=== PATIENT | male | born 1940 | race Caucasian/White ===

== ENCOUNTER 2019-06-18 00:15 | Day surgery (SDC) | payer MEDICARE, SELFPAY ==
[2019-05-31 12:23] VITALS: BP 161/74; PULSE 58; RESP 18; TEMP 36.9; O2SAT 99; BMI 27.9
[2019-05-31 12:58] VITALS: BP 161/74; PULSE 58; RESP 18; TEMP 36.9; O2SAT 99
--- NOTE | 2019-06-17 15:27 | WPDANESEPP ---
Anes - Eval Pre Procedure Procedure: Operation Date: 06/18/19 07:30 Proposed Procedures p Left Total Knee Arthroplasty(Left) - Daljit Cooper MD Date/Time: 06/17/19 15:27 Surgeon: Daljit Cooper MD Pre Op Diagnosis: Left Knee OA Patient Data Age: 79 Gender: M Height: 5 ft 9 in Weight: 85.9 kg Last Vital Signs Temp 98.4 F 05/31/19 12:58 Pulse 58 L 05/31/19 12:58 Resp 18 05/31/19 12:58 BP 161/74 H 05/31/19 12:58 Pulse Ox 99 05/31/19 12:58 Allergies Allergy/AdvReac Type Severity Reaction Status Date / Time No Known Allergies Allergy Verified 06/04/19 09:23 Home Medications Medication Instructions Recorded Confirmed Type acetaminophen [Tylenol Extra 500 mg PO Q4H PRN 05/31/19 06/04/19 History Strength] aspirin [Adult Low Dose Aspirin] 81 mg PO DAILY 05/31/19 06/04/19 History finasteride 5 mg PO DAILY 05/31/19 06/04/19 History flaxseed oil 1,000 mg PO DAILY 05/31/19 06/04/19 History glucos sul [id number] 1 cap PO DAILY 05/31/19 06/04/19 History [Glucosamine Chondroitin] levothyroxine 125 mcg PO DAILY 05/31/19 06/04/19 History meloxicam 15 mg PO DAILY 05/31/19 06/04/19 History tamsulosin 0.4 mg PO BID 05/31/19 06/04/19 History 05/31/19: Hgb 16.0 Plt 152 Na 138 K+4.2 Cr 0.9 GFR >60 Glu 81 Other Studies: pt reports good exercise tolerance, [employer] 2-3 times/wk. stationary bike. METS > [address] Arredondo. Medical clearance on chart noted. 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
--- NOTE | 2019-06-17 15:43 | HP_ITS ---
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 We are planning outpatient with overnight stay. He went home the day after his right knee replacement we had done in August. PAST MEDICAL HISTORY: Significant for BPH, low thyroid, arthritis, right hip replacement in 2011, right knee replacement in August 2018, colon resection in 2007, colon re-resection in 2014 with prolonged hospitalization due to ileus afterwards, rotator cuff repair on the right in 2000, on the left in 2002, herniorrhaphy in 1993. MEDICATIONS: 1. Meloxicam 15 mg per day. 2. Levothyroxine. 3. Finasteride. 4. Tamsulosin. ALLERGIES: NO KNOWN DRUG ALLERGIES. FAMILY HISTORY: Father had Parkinson's. Mother had high blood pressure. SOCIAL HISTORY: He quit smoking 40 years ago. REVIEW OF SYSTEMS: Negative. PHYSICAL EXAMINATION: Today, he is a pleasant gentleman, in no acute distress. He is alert and oriented. He has varus alignment to his left knee. Range of motion is from 6 to 125. No pain with range of motion of his left hip. He has normal stability in the left knee. Normal quadriceps strength. Normal sensation in the left foot. No lower extremity edema. Skin looks healthy in left lower extremity. 2+ dorsalis pedis and posterior tibial artery pulses were palpable. Gait with very slight limp relative to left knee. Heart and lung auscultation will be documented on day of admission. IMAGING DATA: X-rays of the left knee show advanced medial compartment osteoarthritis [id number] with wear and sclerosis on both sides of the medial compartment. Mild medial subluxation noted. Early degenerative change noted in the lateral compartment as well. Risks of surgery were discussed with him in detail. He understands and wishes to proceed with left total knee arthroplasty. With his other knee, we used Lovenox for 2 weeks followed by regular strength aspirin twice daily for 1 month for DVT prophylaxis as well as Celebrex postoperatively. We may use the baby aspirin twice daily regimen now, which has been shown to be equally effective. We will plan with the Celebrex as well. Last cortisone shot in left knee was October 2018, which did not help despite also taking meloxicam 15 mg daily. He has failed nonoperative treatment and presents for surgery as discussed. D I MT: Maria C
[2019-06-18] VITALS (11 sets, daily range): BP systolic 128–167; BP diastolic 51–74; PULSE 49–81; RESP 12–20; TEMP 27.7–36.8; O2SAT 93–100; BMI 26.6
--- NOTE | ~2019-06-18 | XR_ITS ---
EXAMINATION: XR knee LT 2V DATE: 06/18/2019 11:27 INDICATION: Postoperative evaluation following left total knee arthroplasty. TECHNIQUE: Anteroposterior and lateral views of the left knee were obtained. COMPARISON: None. FINDINGS: Left total knee arthroplasty with patellar resurfacing appears well seated and in near anatomic align ment. No fractures identified. Expected postoperative subcutaneous and intra-articular gas. IMPRESSION: 1. Left total knee arthroplasty, negative for postoperative purposes. Reviewed, dictated and finalized at location A. MEDICAL ASSISTANT
[2019-06-18] MEDS: IBUPROFEN IV 800 MG/200 ML 800 MG/200 ML BAG 400 MG IVPB (06:50)
[2019-06-18] MEDS: LACTATED RINGERS 1,000 ML 30 ML IV CONT ×3 (06:50→12:22)
--- NOTE | 2019-06-18 06:50 | WPDANESEFPP ---
Anes - Eval Final PreProcedure Day of Procedure 06/18/19 06:50 Patient weight: overweight Heart: regular rate and rhythm Lungs: clear to auscultation Airway: Mallampati scale class II Neurological: alert and oriented Last oral intake: >/= 8 hours ASA classification: II Emergent: no Anesthetic plan: proceed Anesthesia type and monitoring: general ETT and standard monitoring Informed Consent: The patient's anesthetic plan of GA with ETT for Left TKA with Dr. Cooper and its attendant risks and benefits were discussed with the patient/family/POA. Questions were solicited and answers provided to the satisfaction of the patient/family/POA.
--- NOTE | 2019-06-18 07:16 | WPDHPUPDATE1 ---
History and Physical Update Update Date/Time: 06/18/19 07:16 History and Physical has been reviewed, including an updated exam of the patient. There are NO changes in the patient's condition. Risks, benefits, and alternatives have been discussed and questions answered. Patient agrees to proceed with procedure.
[2019-06-18] MEDS: ceFAZolin 2 GM/D5W 50 ML 2 GM/50 ML BAG IVPB (07:26)
[2019-06-18] MEDS: GENTAMICIN BONE CEMENT REFOBACIN 1 EACH TOPICAL (08:06)
[2019-06-18] MEDS: ceFAZolin SODIUM 1 GM VIAL IV PUSH (10:13)
--- NOTE | 2019-06-18 11:06 | PM.PROC ---
Date of procedure: 06/18/19 Pre-op diagnosis: Left Knee OA Post-op diagnosis: same Procedure performed: Left total knee arthroplasty Description of procedure: Patient is brought to the operative room and general anesthesia was administered. he received 2 g of Ancef weight based vancomycin 1 g of tranexamic acid preoperatively and the left leg prepped draped in usual fashion. Her as she still had about a 5 or 6? flexion contracture do and passive flexion limited to 125 with for some gravity flexion to about 115. That was exsanguinated and tourniquet elevated to 250 mm of mercury. A 7 inch longitudinal incision was used and a standard parapatellar arthrotomy utilized. infrapatellar and suprapatellar fat pads were excised the quadriceps synovectomy carried out. The patella measured 24 mm in thickness and was cut to 15.5 mm. Protector cap applied. Bone quality was good. A guiderod was inserted our femoral canal for aspiration of the canal contents using the 5? valgus cutting bushing 10 mm of bone removed the distal femur. next the tibial plateau was cut. We and we set the cut to be a skim cut along the medial aspect of the medial tibial plateau and this was accomplished Caroline flash medially and medial edge. This removed more lateral plateau because of his varus deformity bone measured 12.5 mm thickness. meniscal remnants were excised PCL recessed. Medial tibial osteophyte was removed. Medial side was still a bit tighter than the lateral side in extension. He accepted the 10 mm spacer block in extension with gapping laterally. None except the 12. Flexion gap was assessed. Medially it measured 9 mm laterally 14 mm. The proper alignment of the tibial plateau cut was confirmed. Whitesides line as well as the transepicondylar axis were drawn on the distal femur and 5? of external rotation on the AP sizing guide was the proper rotation which matched both lines. Posterior sentinel placed and we cut 272.5 size we utilized on the other side. This side to 72.5 was a little bit too wide and 2 large knee in the anterior-posterior dimension. We cut down to size 70 which fit well. the tibia was sized to a 75 a 79 was going to be too wide at the proper rotation grade this was punched and proper rotation relative to medial 1/3 of the tibial tubercle Eliza anterior cortex of the tibial plateau cut and aligned with the foot. on trialing the 12 insert was a little loose in flexion tighter medially than laterally and in extension it was tighter medially than laterally with balance. Additional tibial plateau bone was removed medially and posterior medially with moderate medial posterior medial capsular release associated grade this time we trialed with the 13 insert. we were still too tight medially especially at 90? of flexion with no medial gapping with a 13 and a tightness medially with a little too much gap laterally. I felt I had done as much medial releases was performed with. I thought the best solution was to remove 1 mm of bone from the medial plateau to introduce for for S 1? of varus which is what we ended up doing for his other knee as well. with this done we trialed with a 14 insert and found that we had appropriate stability at 90? with 0.5 mm medial opening 2 mm lateral opening. However we lacked full extension at this point. I had prior to this step released posterior capsule medially and centrally and removed posterior femoral osteophytes. we therefore removed 1 more mm of bone from the distal femur. Tourniquet had been put down at this point is we were not going to come in and went underwent 120 min. A mm of distal femur history move to and chamfer cuts revised and we trialed again and this time the knee came out to full extension with a negative bounce 1 mm medial opening 3 mm lateral opening in extension and appropriate stability throughout flexion and gravity flexion to 130. The patella was sized to a 37 and lug holes drilled and the 37 thin 8.6 mm patella daphne
--- NOTE | 2019-06-18 12:53 | ADMGEN ---
This patient, Chuy Smart, was admitted to [facility] Surg Room 332-01. Patient/family oriented to hospital policies and general routines including ID bracelet, bed and alarms, visiting hours, pain management, procedures, bathroom and other care routines, personal items, smoking policy, room service/diet, and visiting hours. Valuables list has been completed. Information on how to activate the Rapid Response Team has been discussed. Patient/Family are encouraged to report perceived risks to care and to ask questions if they do not understand what they are told or what they should do.
[2019-06-18] MEDS: SODIUM CHLORIDE 0.9% IV 1,000 ML 125 ML IV CONT (13:20)
--- NOTE | 2019-06-18 14:04 | WPDCN ---
Assessment and Plan Assessment and plan (1) Osteoarthritis: Code(s): M19.90 - Unspecified osteoarthritis, unspecified site Status: Chronic Assessment and Plan: Postoperative day 0, status post left total knee arthroplasty. Pain control and wound care will be deferred to Dr. Cooper, as well as DVT prophylaxis. Will check baseline labs in a.m. (2) Hypothyroidism: Code(s): E03.9 - Hypothyroidism, unspecified Status: Chronic Assessment and Plan: Continue levothyroxine. (3) Benign prostatic hyperplasia without lower urinary tract symptoms: Code(s): N40.0 - Benign prostatic hyperplasia without lower urinary tract symptoms Status: Chronic Assessment and Plan: No acute issues. Will monitor for postoperative urinary retention. Continue tamsulosin. Additional Plan Thank you for allowing us to participate in this patient's care. Do not hesitate to contact us with any questions. We will follow with you. Supervising physician for this medical consultation is Dr. Enrrique Velazquez. HPI Data of Consult Date/Time: 06/18/19 14:04 Requesting Physician: Daljit Cooper MD Primary Care Provider: Jhonny Arredondo MD Consult Narrative Narrative: Chuy Smart is a 79 year old male status post left total knee arthroplasty performed today per Dr. Cooper. The hospitalist service has been consulted to aid in the management of his medical conditions. Chuy currently takes medication for hypothyroidism and benign prostatic hyperplasia, both which he states are adequately treated. 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 Other than that, he is quite healthy. His surgery today was performed under general anesthesia with no immediate complications documented an estimated blood loss of 250 mLs. Postoperatively he has minimal discomfort. He denies paresthesias, skin color, and temperature changes distal to the surgical site. He also denies postoperative fever, chills, sweats, chest pain, shortness of breath, nausea, and vomiting. The only complaint he has at the time my evaluation is of the room being too warm. Review of Systems Review of Systems: Narrative: Twelve systems were reviewed with pertinent positives and negatives as per HPI. No fever, chills, or sweats. He had some sinus symptoms several weeks ago but those have resolved. No exertional chest pain or shortness of breath. No history of venous thromboembolism. Except as documented, all other systems were reviewed and are negative. [facility] Past Medical History Medical History (Updated 06/18/19 @ 14:12 by Chantel Vidal PA-C) Benign prostatic hyperplasia without lower urinary tract symptoms (Chronic) Hyperlipidemia (Inactive) Hypothyroidism (Chronic) Osteoarthritis (Chronic) Overweight (BMI 25.0-29.9) (Chronic) Surgical History Surgical History (Updated 06/18/19 @ 14:13 by Chantel Vidal PA-C) History of colon resection (Inactive) In 2007 for large rectal tubulovillous adenoma. He had a recurrent mass which was subsequently resected in September 2014 with colostomy. History of inguinal herniorrhaphy (Inactive) Bilateral. History of knee replacement (Inactive) Right on September 13, 2018. History of rotator cuff surgery (Inactive) Bilateral. History of total hip replacement (Inactive) Right in 2011. Status post cataract extraction (Inactive) Status post tonsillectomy (Inactive) Family History Family History (Updated 06/18/19 @ 14:14 by Chantel Vidal PA-C) Mother Hyp
[2019-06-18 14:41] LABS: Estimated CRCL calculation 58 ml/min; Estimated Glomerular Filt Rate > 60
[2019-06-18] MEDS: ACETAMINOPHEN 500 MG TABLET 1000 MG PO ×2 (15:01→21:36)
[2019-06-18] MEDS: TAMSULOSIN HCL 0.4 MG CAPSULE PO (17:09)
[2019-06-18] MEDS: SENNA/DOCUSATE SODIUM TABLET 2 TAB PO (17:10)
[2019-06-18] MEDS: CELECOXIB 200 MG CAPSULE PO (17:12)
[2019-06-18] MEDS: FAMOTIDINE 20 MG TABLET PO (21:36)
[2019-06-19] VITALS: BP 135/62; PULSE 75; RESP 20; TEMP 37; O2SAT 97
[2019-06-19] MEDS: ACETAMINOPHEN 500 MG TABLET 1000 MG PO ×2 (01:59→08:00)
[2019-06-19 04:00] VITALS: BP 128/53; PULSE 53; RESP 20; TEMP 36.8; O2SAT 95
[2019-06-19] MEDS: LEVOTHYROXINE SODIUM 125 MCG TABLET PO (05:46)
[2019-06-19 06:04] LABS: Basophils Percent Auto 0.1 % (0.2-1.2); Eosinophils Percent Auto 0.2 % (0-4.4); Hematocrit 38.2 % (42.0-52.0); Immature Granulocyte Absolute 0.05 K/mm3 (0.00-0.031); Immature Granulocyte Percent A 0.5 % (0-0.5); Lymphocytes Absolute Auto 0.95 K/mm3 (0.9-3.2); Mean Corpuscular Hemoglobin 32.6 pg (26-34); Mean Corpuscular Volume 95.7 fl (80-100); Mean Platelet Volume 12.6 fl (7.4-10.4); Monocytes Absolute Auto 0.8 K/mm3 (0.1-0.6); Monocytes Percent Auto 7.9 % (2.6-8.5); Neutrophils Absolute Auto 7.7 K/mm3 (1.3-6.7); Neutrophils Percent Auto 81.3 % (45.5-73.1); Platelet Count Result 127 k/mm3 (150-375); Red Blood Count 3.99 M/mm3 (4.6-6.20); Red Cell Distribution Width 11.9 % (11.5-14.5); White Blood Count 9.5 K/mm3 (4.5-10.0)
--- NOTE | 2019-06-19 06:09 | PM.PNORT ---
Progress Note: A&P Additional Plan POD 1 alert pain is well controlled, wd-dry, was up to chair yesterday, labs-pending, overall doing well, will do PT sessions today then plan to send home later today Subjective Subjective Date/Time Seen: 06/19/19 06:09 Objective Data Vital Signs Vital Signs: Vital Signs - 24 hr 06/18/19 07:32 06/18/19 11:42 06/18/19 11:46 Temperature 27.7 C L 36.3 C L Pulse Rate 51 L 53 L 50 L Respiratory Rate 18 16 13 Blood Pressure 155/68 H 133/51 L 135/74 Pulse Oximetry 97 100 100 06/18/19 11:53 06/18/19 12:11 06/18/19 12:20 Temperature Pulse Rate 49 L 54 L 52 L Respiratory Rate 12 18 16 Blood Pressure 158/62 H 166/64 H 164/64 H Pulse Oximetry 100 95 100 06/18/19 12:25 06/18/19 12:40 06/18/19 13:10 Temperature 36.8 C 36.8 C Pulse Rate 53 L 51 L 54 L Respiratory Rate 16 16 16 Blood Pressure 151/66 H 167/62 H 159/58 H Pulse Oximetry 100 100 100 06/18/19 14:10 06/18/19 20:00 06/19/19 00:00 Temperature 36.4 C L 36.7 C 37.0 C Pulse Rate 81 55 L 75 Respiratory Rate 18 20 20 Blood Pressure 149/57 H 128/57 L 135/62 Pulse Oximetry 97 93 L 97 Intake/Output Intake/Output: Intake & Output 06/16/19 06/17/19 06/18/19 06/19/19 23:59 23:59 23:59 23:59 Intake Total 2785 725 Output Total 500 Balance 2285 725 Meds/Results Medications: Active Medications Generic Name Dose Route Start Last Admin Trade Name Freq PRN Reason Stop Dose Admin Acetaminophen 1,000 mg 06/18/19 14:00 06/19/19 01:59 Tylenol Tablet PO 1,000 mg Q6H NOLAN Administration Celecoxib 200 mg 06/18/19 17:00 06/18/19 17:12 Celebrex PO 200 mg BIDWM NOLAN Administration Diphenhydramine HCl 25 mg 06/18/19 12:33 Benadryl Inj IV PUSH Q6H PRN Itching Enoxaparin Sodium 30 mg 06/19/19 09:00 Lovenox SUB-Q Q12HR NOLAN Famotidine 20 mg 06/18/19 21:00 06/18/19 21:36 Pepcid PO 20 mg Q12HR NOLAN Administration Finasteride 5 mg 06/19/19 09:00 Proscar PO DAILY NOLAN Cefazolin Sodium 1 gm in 50 mls @ 100 mls/hr 06/18/19 15:30 06/18/19 23:53 Ancef 1 Gm/D5w 50 Ml Pm IVPB 06/19/19 15:31 100 mls/hr Q8H NOLAN Administration Vancomycin HCl 1,000 mg in 250 mls @ 250 mls/hr 06/18/19 19:00 06/18/19 18:02 Vancomycin 1,000 Mg/D5w 250 Ml IVPB 06/19/19 07:59 250 mls/hr Q12H NOLAN Administration Levothyroxine Sodium 125 mcg 06/19/19 06:30 06/19/19 05:46 Synthroid PO 125 mcg DAILY@0630 NOLAN Administration Morphine Sulfate 2 mg 06/18/19 12:33 Morphine Sulfate Inj IV PUSH Q2H PRN Breakthrough pain rated 4-6 Naloxone HCl 0.1 mg 06/18/19 12:33 Narcan IV PUSH Q2M PRN Opiate Reversal Ondansetron HCl 4 mg 06/18/19 12:33 Zofran Inj IV PUSH Q4H PRN Nausea And Vomiting Oxycodone HCl 5 mg 06/18/19 12:33 Roxicodone Ir PO Q4H PRN Pain Rated 4-6 Oxycodone HCl 5 mg 06/18/19 13:00 06/19/19 05:46 Roxicodone Ir PO 5 mg Q4HR NOLAN Administration Polyethylene Glycol 17 gm 06/19/19 09:00 Miralax PO QAM NOLAN Senna/Docusate Sodium 2 tab 06/18/19 17:00 06/18/19 17:10 Senokot S PO 2 tab BID NOLAN Administration Tamsulosin HCl 0.4 mg 06/18/19 17:00 06/18/19 17:09 Flomax PO 0.4 mg BID NOLAN Administration Radiology Results: ITS Impressions Knee X-Ray 06/18/19 11:29 IMPRESSION: 1. Left total knee arthroplasty, negative for postoperative purposes. Labs Labs: Laboratory Results - last 24 hr 06/18/19 06/18/19 06:50 14:25 Creatinine 0.90 Estim Creat Clear Calc 58 Estimated GFR > 60 Blood Type O Positive Antibody Screen Negative
[2019-06-19 06:13] LABS: Blood Urea Nitrogen 18 mg/dL (9-20); Calcium 8.2 mg/dL (8.4-10.2); Carbon Dioxide 28 mmol/L (22-30); Chloride 106 mmol/L (98-107); Estimated CRCL calculation 53 ml/min; Estimated Glomerular Filt Rate > 60; Glucose 109 mg/dL (75-110); Potassium 3.9 mmol/L (3.4-5.0); Sodium 140 mmol/L (137-145)
--- NOTE | 2019-06-19 06:27 | PM.DS ---
DS: Diagnosis Admitting Diagnosis Admitting Diagnosis: Left total knee DS: Summary Hospital Course Reason for hospitalization: Left total knee Hospital Course: Pt has been avss, alert , pain is well controoled, wd-dry with mepilex dressing, Pt to be discharged to home on 06-19, going home on regular diet. Pt advised to keep leg elevated at home to prevent swelling. Pt is on lovenox followed by babay aspirin BID for DVT proph., He is on celebrex 200mg BID and percocet for pain. He will have sennokat and miralax as well. He has outpt PT to start this tuesday, pt advised any questions or concerns to call office otherwise will be seen at scheduled appt Time Spent with Patient Time attestation: Total time spent providing and/or coordinating discharge services: DS: Data Data Completed and Pending Labs on day of discharge: Labs from last 24 hours 06/19/19 06/19/19 06/18/19 05:42 05:42 14:25 WBC 9.5 RBC 3.99 L Hgb 13.0 L D Hct 38.2 L MCV 95.7 MCH 32.6 MCHC 34.0 RDW 11.9 Plt Count 127 L MPV 12.6 H Immature Gran % (Auto) 0.5 Neut % (Auto) 81.3 H Lymph % (Auto) 10.0 L [place] % (Auto) 7.9 Eos % (Auto) 0.2 Baso % (Auto) 0.1 L Lymph # (Auto) 0.95 [place] # (Auto) 0.8 H Eos # (Auto) 0.0 Baso # (Auto) 0.0 Abs Immat Gran (auto) 0.05 H Absolute Neuts (auto) 7.7 H Absolute Nucleated RBC 0.0 Nucleated RBC % 0.0 Sodium 140 Potassium 3.9 Chloride 106 Carbon Dioxide 28 BUN 18 Creatinine 1.00 0.90 Estim Creat Clear Calc 53 58 Estimated GFR > 60 > 60 Glucose 109 Calcium 8.2 L Blood Type Antibody Screen 06/18/19 06:50 WBC RBC Hgb Hct MCV MCH MCHC RDW Plt Count MPV Immature Gran % (Auto) Neut % (Auto) Lymph % (Auto) [place] % (Auto) Eos % (Auto) Baso % (Auto) Lymph # (Auto) [place] # (Auto) Eos # (Auto) Baso # (Auto) Abs Immat Gran (auto) Absolute Neuts (auto) Absolute Nucleated RBC Nucleated RBC % Sodium Potassium Chloride Carbon Dioxide BUN Creatinine Estim Creat Clear Calc Estimated GFR Glucose Calcium Blood Type O Positive Antibody Screen Negative Discharge Plan Discharge Patient Disposition: Home, Self-Care Discharge Instructions: Pt to keep leg elevated at home to prevent swelling, do exercises 5 times a day, give pt additional dressing to change at home in 1 week, pt may shower with dressing intact Follow-up/Referrals: Daljit Cooper MD [Physician] - Keep Reg. Scheduled Appt. Discharge Medications: New celecoxib [Celebrex] 200 mg Capsule 200 mg PO BIDWM Qty: 60 RF: 0 polyethylene glycol 3350 [Miralax] 17 gram Powder In Packet 17 g PO QAM Qty: 30 RF: 0 sennosides-docusate sodium [Senokot-S] 8.6-50 mg Tablet 2 tab PO BID Qty: 60 RF: 0 enoxaparin 30 mg/0.3 mL Syringe 30 mg subcut Q12HR Qty: 27 RF: 0 oxycodone-acetaminophen [Percocet] 5-325 mg tablet 1 - 2 tablet PO Q4H PRN (Reason: pain) Qty: 60 RF: 0 Continued flaxseed oil 1,000 mg Capsule 1,000 mg PO DAILY RF: 0 tamsulosin 0.4 mg Capsule 0.4 mg PO BID RF: 0 finasteride 5 mg Tablet 5 mg PO DAILY RF: 0 Glucosamine Chondroitin 550-30-1 mg Capsule 1 cap PO DAILY RF: 0 levothyroxine 125 mcg tablet 125 mcg PO DAILY RF: 0 Discontinued meloxicam 15 mg Tablet 15 mg PO DAILY RF: 0 aspirin [Adult Low Dose Aspirin] 81 mg Tablet,Delayed Release (Dr/Ec) 81 mg PO DAILY RF: 0 acetaminophen [Tylenol Extra Strength] 500 mg Tablet 500 mg PO Q4H PRN (Reason: Pain) RF: 0
--- NOTE | 2019-06-19 07:55 | PM.IMPN ---
Progress Note: A&P Assessment and Plan (1) Osteoarthritis: Qualifiers: Osteoarthritis location: knee Osteoarthritis type: primary Laterality: left Qualified Code(s): M17.12 - Unilateral primary osteoarthritis, left knee Code(s): M19.90 - Unspecified osteoarthritis, unspecified site Status: Chronic Assessment and Plan: S/P left TKA by Dr. Cooper on 06/18/19. POD # 1. Postoperative care per orthopedics incuding pain management. Continue PT/OT. Medically stable for discharge. (2) History of total hip replacement: Qualifiers: Laterality: left Qualified Code(s): Z96.642 - Presence of left artificial hip joint Code(s): Z96.649 - Presence of unspecified artificial hip joint Status: Inactive Assessment and Plan: POD # 1. Plan per orthopedics. (3) Hypothyroidism: Qualifiers: Hypothyroidism type: unspecified Qualified Code(s): E03.9 - Hypothyroidism, unspecified Code(s): E03.9 - Hypothyroidism, unspecified Status: Chronic Assessment and Plan: Stable. Continue current levothyroxine. (4) Benign prostatic hyperplasia without lower urinary tract symptoms: Code(s): N40.0 - Benign prostatic hyperplasia without lower urinary tract symptoms Status: Chronic Assessment and Plan: No acute issue. Stable. Continue tamsulosin and finasteride. (5) History of colon resection: Code(s): Z90.49 - Acquired absence of other specified parts of digestive tract Status: Inactive Assessment and Plan: S/P resection with colostomy. No current issues. (6) DVT prophylaxis: Code(s): Z29.9 - Encounter for prophylactic measures, unspecified Status: Acute Assessment and Plan: Per orthopedics. Mary on Lovenox. Time Spent With Patient Time with patient: 15 - 25 minutes Subjective Interval history: Date of Service: 06/19/2019. Admitted for left TKA. Hospitalist service consulted for medical management. Doing well this morning. Pain left knee controlled. No chest pain or shortness of breath. No abdominal pain. No issues with ostomy. Review of Systems Constitutional: Constitutional: Denies fatigue and Denies fever(s) ENT: Denies dysphagia Cardiovascular: Cardiovascular: Denies chest pain and Denies palpitations Respiratory: Respiratory: Denies dyspnea Gastrointestinal: Gastrointestinal: Denies abdominal pain, Denies constipation, Denies nausea and Denies vomiting Genitourinary: Genitourinary: Reports no additional male genitourinary complaints Musculoskeletal: Comments: pain left knee controlled Neurologic: Denies headache(s) Psychiatric: Psychiatric: Denies confusion Exam Const: General: no acute distress HENMT: Mouth: Yes moist mucous membranes Neck: Neck: supple Lymphatic: lymphadenopathy not noted Resp: Auscultation: clear to auscultation bilaterally, no rales and no wheezes Cardio: Rate: regular rate Rhythm: regular rhythm GI: Inspection: non-distended Palpation (GI): Yes soft and No tender Auscultation: normal bowel sounds Other: colostomy on left and functional Neuro: Speech: normal speech Extrem: General: no edema Other: surgical bandage over left anterior knee Psych: Mental Status: mental status grossly normal Affect: normal affect Objective Data Vital Signs Vital Signs: Vital Signs - 24 hr 06/18/19 11:42 06/18/19 11:46 06/18/19 11:53 Temperature 36.3 C L Pulse Rate 53 L 50 L 49 L Respiratory Rate 16 13 12 Blood Pressure 133/51 L 135/74 158/62 H Pulse Oximetry 100 100 100 06/18/19 12:11 06/18/19 12:20 06/18/19 12:25 Temperature 36.8 C Pulse Rate 54 L 52 L 53 L Respiratory Rate 18 16 16 Blood Pressure 166/64 H 164/64 H 151/66 H Pulse Oximetry 95 100 100 06/18/19 12:40 06/18/19 13:10 06/18/19 14:10 Temperature 36.8 C 36.4 C L Pulse Rate 51 L 54 L 81 Respiratory Rate 16 16 18 Blood Pressure 167/62 H 159/58 H 149/57 H Pulse Oximetry 100
[2019-06-19] MEDS: FAMOTIDINE 20 MG TABLET PO (08:00)
[2019-06-19] MEDS: CELECOXIB 200 MG CAPSULE PO (08:00)
[2019-06-19] MEDS: ENOXAPARIN 30 MG/0.3 ML SYRINGE SUB-Q (08:01)
[2019-06-19] MEDS: POLYETHYLENE GLYCOL 3350 17 GM POWD.PACK PO (08:01)
[2019-06-19] MEDS: SENNA/DOCUSATE SODIUM TABLET 2 TAB PO (08:01)
[2019-06-19] MEDS: TAMSULOSIN HCL 0.4 MG CAPSULE PO (08:01)
[2019-06-19] MEDS: FINASTERIDE 5 MG TABLET PO (08:01)
== END 2019-06-19 11:43 | disposition home or self-care (01) ==
LOC: ANHSURGERY 06:23 → ANH3MEDSUR 12:43
PROVIDERS: Physician Assistant Surgical; PCP Internal Medicine; Visit Provider Orthopaedic Surgery
PROC: (CPT 27447; principal; 2019-06-18 07:30)
DX: M17.12 Unilateral primary osteoarthritis, left knee (principal); E03.9 Hypothyroidism, unspecified; N40.0 Benign prostatic hyperplasia without lower urinary tract symptoms; Z79.82 Long term (current) use of aspirin; Z90.49 Acquired absence of other specified parts of digestive tract; Z79.899 Other long term (current) drug therapy
CPT/HCPCS: 27447; 36415; 73560; 80048; 80307; 82040; 82565; 83036; 85025; 86850; 86900; 86901; 87070; 97110; 97116; 97161; 97165; A9270; C1713; C1776; J0131; J0171; J0690; J1100; J1170; J1650; J1741; J2270; J2405; J2704; J2710; J2795; J3010; J3370; J7030; J7120

== ENCOUNTER 2020-07-15 07:17 | Outpatient (CLI) | payer MEDICARE, SELFPAY ==
[2020-07-15 07:53] LABS: Basophils Percent Auto 0.7 % (0.2-1.2); Eosinophils Absolute Auto 0.1 K/mm3 (0-0.3); Eosinophils Percent Auto 2.9 % (0-4.4); Hematocrit 46.6 % (42.0-52.0); Hemoglobin 16.1 g/dL (14.0-18.0); Immature Granulocyte Absolute 0.03 K/mm3 (0.00-0.031); Immature Granulocyte Percent A 0.7 % (0-0.5); Lymphocytes Absolute Auto 1.13 K/mm3 (0.9-3.2); Lymphocytes Percent Auto 25.3 % (18.3-44.2); Mean Corpuscular HGB Conc 34.5 g/dl (32-36); Mean Corpuscular Volume 95.5 fl (80-100); Mean Platelet Volume 11.8 fl (7.4-10.4); Monocytes Absolute Auto 0.5 K/mm3 (0.1-0.6); Monocytes Percent Auto 10.1 % (2.6-8.5); Neutrophils Absolute Auto 2.7 K/mm3 (1.3-6.7); Neutrophils Percent Auto 60.3 % (45.5-73.1); Platelet Count Result 146 k/mm3 (150-375); Red Blood Count 4.88 M/mm3 (4.6-6.20); Red Cell Distribution Width 12.1 % (11.5-14.5); White Blood Count 4.5 K/mm3 (4.5-10.0)
[2020-07-15 07:56] LABS: Add Urine Microscopic? NO; Appearance Urine Clear (Clear); Bilirubin Urine Negative (Negative); Blood Urine Negative (Negative); Color Urine Straw (Yellow); Glucose Urine UA Negative (Negative); Ketones Urine Negative (Negative); Leukocyte Esterase Ur Negative LEU/UL (NEGATIVE); Nitrate Urine Negative (Negative); Protein Urine Negative (Negative); Specific Grav Ur 1.013 (1.001-1.035); Urobilinogen Urine Negative mg/dL (<2.0)
== END 2020-07-15 07:18 | disposition home or self-care (01) ==
PROVIDERS: PCP Internal Medicine; Visit Provider Internal Medicine
DX: E03.9 Hypothyroidism, unspecified (principal); N40.0 Benign prostatic hyperplasia without lower urinary tract symptoms
CPT/HCPCS: 36415; 80053; 81003; 84443; 85025

== ENCOUNTER 2020-07-24 07:03 | Outpatient (CLI) | payer MEDICARE, SELFPAY ==
--- NOTE | ~2020-07-24 | XR_ITS ---
XR hand BI arthritis min 3V 07/24/2020 08:05 Indication: Osteoarthritis of the hands. Procedure: 4 views of each hand Comparison: No prior studies for comparison. Findings: There is bilateral polyarticular osteoarthritis of the hands and wrists, most severe at the first carpal metacarpal joints bilaterally. There are also degenerative changes of the intercarpal j oints, MCP joints and interphalangeal joints. No significant soft tissue abnormality. There are loose bodies adjacent to the left wrist. Impression: 1: Moderate-severe polyarticular osteoarthritis of the hands and wrists. Reviewed, dictated and finalized at location A. R TENDER Impression: 1: Moderate-severe polyarticular osteoarthritis of the hands and wrists.
[2020-07-24 08:25] LABS: Alanine Aminotransferase 21 U/L (4-50); Albumin Level 4.1 g/dL (3.5-5.1); Alkaline Phosphatase 94 U/L (38-126); Anion Gap 6 mmol/L (8-16); Aspartate Amino Transferase 27 U/L (17-59); Bilirubin,Total 1.2 mg/dL (0.2-1.3); Blood Urea Nitrogen 24 mg/dL (9-20); Calcium 9.2 mg/dL (8.4-10.2); Carbon Dioxide 29 mmol/L (22-30); Chloride 104 mmol/L (98-107); Estimated Glomerular Filt Rate > 60; Glucose 98 mg/dL (75-110); Potassium 4.4 mmol/L (3.4-5.0); Sodium 139 mmol/L (137-145)
[2020-07-24 09:00] LABS: Vitamin D 25 Hydroxy 46.8 ng/mL
== END 2020-07-24 07:04 | disposition home or self-care (01) ==
LOC: ANHLAB 07:04
PROVIDERS: PCP Internal Medicine; Visit Provider Internal Medicine
DX: M17.12 Unilateral primary osteoarthritis, left knee (principal); E03.9 Hypothyroidism, unspecified; E78.5 Hyperlipidemia, unspecified; N40.0 Benign prostatic hyperplasia without lower urinary tract symptoms; E55.9 Vitamin D deficiency, unspecified; M19.042 Primary osteoarthritis, left hand; M19.041 Primary osteoarthritis, right hand
CPT/HCPCS: 36415; 73130; 80053; 82306; 84443

== ENCOUNTER 2020-10-13 12:12 | Outpatient (CLI) | payer MEDICARE, SELFPAY ==
--- NOTE | ~2020-10-13 | US_ITS ---
EXAMINATION: US venous doppler [facility] EXAM DATE: 10/13/2020 13:05 INDICATION: Left calf pain and swelling. Hestand a pop 2 weeks ago. TECHNIQUE: Multiple grayscale, color flow and Doppler images of the left lower extremity deep venous system were obtained and reviewed. There is no prior study for comparison. FINDINGS: The left common femoral, femoral and profunda veins demonstrate normal color flow, respirat ory variation, augmentation and compressibility. Compressibility, color flow confirmed within the le ft popliteal, posterior tibial, peroneal, and greater saphenous veins. Partial noncompressible lesser saphenous vein, a superficial structure, nonocclusive thrombus or chronic scarring. There is a focal heterogeneously hypoechoic masslike region in the medial head of the gastrocnemius m uscle, without vascularity demonstrated indicating that this could be a hematoma. If this developed a cutely, that would be consistent with the history provided. Follow-up exam is recommended to make nadja e this resolves and exclude any solid component. IMPRESSION: 1. No left lower extremity deep venous thrombosis. 2. Intramuscular masslike region, probably hematoma but clinical correlation and follow-up recommend ed. 3. Nonocclusive superficial thrombus or chronic scarring in lesser saphenous vein. Reviewed, dictated and finalized at location A. IMPRESSION: 1. No left lower extremity deep venous thrombosis. 2. Intramuscular masslike region, probably hematoma but clinical correlation a nd follow-up recommended. 3. Nonocclusive superficial thrombus or chronic scarring in lesser saphenous v ein.
== END 2020-10-13 12:13 | disposition home or self-care (01) ==
PROVIDERS: PCP Internal Medicine; Visit Provider Internal Medicine
DX: I82.402 Acute embolism and thrombosis of unspecified deep veins of left lower extremity (principal)
CPT/HCPCS: 93971

== ENCOUNTER 2021-01-22 11:17 | Outpatient (CLI) | payer MEDICARE, SELFPAY ==
[2021-01-22 12:20] LABS: Hematocrit 44.6 % (42.0-52.0); Hemoglobin 14.9 g/dL (14.0-18.0); Mean Corpuscular HGB Conc 33.4 g/dl (32-36); Mean Corpuscular Hemoglobin 31.1 pg (26-34); Mean Corpuscular Volume 93.1 fl (80-100); Mean Platelet Volume 11.9 fl (7.4-10.4); Platelet Count Result 152 k/mm3 (150-375); Red Blood Count 4.79 M/mm3 (4.6-6.20); Red Cell Distribution Width 12.1 % (11.5-14.5); White Blood Count 5.8 K/mm3 (4.5-10.0)
[2021-01-22 12:28] LABS: Anion Gap 6 mmol/L (8-16); Blood Urea Nitrogen 21 mg/dL (9-20); Carbon Dioxide 26 mmol/L (22-30); Chloride 107 mmol/L (98-107); Estimated Glomerular Filt Rate > 60; Glucose 81 mg/dL (75-110); Potassium 4.5 mmol/L (3.4-5.0); Sodium 139 mmol/L (137-145)
== END 2021-01-22 11:18 | disposition home or self-care (01) ==
PROVIDERS: PCP Internal Medicine; Visit Provider Internal Medicine
DX: E03.9 Hypothyroidism, unspecified (principal); E78.5 Hyperlipidemia, unspecified; N40.0 Benign prostatic hyperplasia without lower urinary tract symptoms
CPT/HCPCS: 36415; 80048; 84443; 85027

== ENCOUNTER 2021-04-04 08:47 | Emergency (ER) | payer MEDICARE, SELFPAY ==
--- NOTE | ~2021-04-04 | XR_ITS ---
EXAMINATION: XR hand RT min 3V INDICATION: Right hand pain TECHNIQUE: Three views of the right hand are obtained. COMPARISON: 07/24/2020 FINDINGS: There is advanced osteoarthritis at the first carpometacarpal joint, the second metacarpoph alangeal joint, and multiple interphalangeal joints without significant change since the comparison e xamination. No fracture is identified. The soft tissues are unremarkable. IMPRESSION: 1. Polyarticular osteoarthritis without acute osseous abnormality. Reviewed, dictated and finalized at location A.
--- NOTE | ~2021-04-04 | XR_ITS ---
EXAMINATION: XR hand LT min 3V INDICATION: Left hand pain TECHNIQUE: Three views of the left hand are obtained. COMPARISON: 07/24/2020 FINDINGS: There is advanced osteoarthritis at the first carpometacarpal joint and second through four th proximal interphalangeal joints. There is mild osteoarthritis at the metacarpophalangeal joints as well as the distal interphalangeal joints. No fracture is identified. There is dorsal soft tissue sw elling of the hand. IMPRESSION: 1. Polyarticular osteoarthritis without acute osseous abnormality. Reviewed, dictated and finalized at location A.
[2021-04-04 08:51] VITALS: BP 107/76; PULSE 84; RESP 20; TEMP 36.7; O2SAT 96
--- NOTE | 2021-04-04 09:04 | ED.GENADULT ---
HPI - General Adult General Chief complaint: Unspecified Stated complaint: hand swelling, joint pain Time Seen by Provider: 04/04/21 08:49 Source: RN notes reviewed History of Present Illness HPI narrative: Patient presents emergency department from home for joint pain. Patient states has been having pain in his bilateral hands for the past 4 weeks states pain is across his bilateral knuckles and notes some swelling in his left hand he states he does have a history of severe arthritis and is possibly going to get joint injections by his orthopedic physician next week in his bilateral thumbs he denies any new trauma or injury he states that over the past 2 days has been having aching as well in his bilateral dorsal feet he denies any trauma or injury as well he states he last took Tylenol yesterday for the pain denies any fevers or chills chest pain shortness of breath numbness or tingling in extremities or any other symptoms of concern Related Data Home Medications Medication Instructions Recorded Confirmed finasteride 5 mg PO DAILY 05/31/19 04/04/21 tamsulosin 0.4 mg PO BID 05/31/19 04/04/21 aspirin 81 mg tablet,delayed 81 mg PO DAILY 07/23/20 04/04/21 release cholecalciferol (vitamin D3) 50 50 mcg PO DAILY 07/23/20 04/04/21 mcg (2,000 unit) capsule flaxseed oil 1,300 mg-omega 3,6,9 1 cap PO DAILY 07/23/20 04/04/21 845 mg-117 mg-117 mg capsule levothyroxine 100 mcg PO DAILY 04/04/21 04/04/21 meloxicam 15 mg PO DAILY 04/04/21 04/04/21 Allergies Allergy/AdvReac Type Severity Reaction Status Date / Time No Known Allergies Allergy Verified 04/04/21 08:55 Review of Systems Review of Systems: Gen.: Denies fevers or chills ENT: Denies congestion Respiratory: Denies shortness of breath or cough CV: Denies chest pain or palpitations GI: Denies abdominal pain nausea, emesis Musculoskeletal: See HPI Neuro: Denies numbness, tingling, weakness or focal weakness Skin: Denies rash Except as documented, all other systems reviewed and negative PMFSH Past Medical History Medical History Benign prostatic hyperplasia without lower urinary tract symptoms Hyperlipidemia Hypothyroidism Osteoarthritis Overweight (BMI 25.0-29.9) Surgical History Surgical History (Updated 07/25/19 @ 07:29 by Jhonny Arredondo MD) 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 He had a recurrent mass which was subsequently resected in September 2014 with colostomy. History of inguinal herniorrhaphy Bilateral. History of knee replacement Right on September 13, 2018. History of rotator cuff surgery Bilateral. History of total hip replacement Right in 2011. Status post cataract extraction Status post tonsillectomy Family History Family History (Updated 06/18/19 @ 14:14 by Chantel Vidal PA-C) Mother Hypertension Father Family history of Parkinson's disease Sibling Lung cancer Rheumatoid arthritis Social History Social History Social History: Mr. Smart is and lives with his in [place]. He designates his , Rosenda, as his surrogate decision maker and he wishes to be a full code. 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 He used to smoke cigars but quit many years ago. He drinks maybe 5 beers a couple of times a week. Tobacco type: cigars Smokeless tobacco user: chewing tobacco Second hand tobacco smoke exposure: No Smoking end date: 07/18/78 Alcohol intake: current Alcohol use details: Social Exam Narrative: APPEARANCE: No acute distress, nontoxic, resting in bed EYES: EOMI HEENT: Normocephalic, atraumatic, OMM RESPIRATORY: No respiratory distress Clear to auscultation bilaterally with no rhonchi wheezing or rales. CARDIOVASCULAR: Regular rate and rhythm without murmurs rubs or gallops. Bilateral
[2021-04-04] MEDS: HYDROcodone/acetaminophen (*CRX) 5-325 MG TABLET 1 TAB PO (09:24)
[2021-04-04 09:26] LABS: Basophils Percent Auto 0.5 % (0.2-1.2); Eosinophils Absolute Auto 0.1 K/mm3 (0-0.3); Eosinophils Percent Auto 1.7 % (0-4.4); Hematocrit 41.2 % (42.0-52.0); Hemoglobin 13.8 g/dL (14.0-18.0); Immature Granulocyte Absolute 0.03 K/mm3 (0.00-0.031); Immature Granulocyte Percent A 0.5 % (0-0.5); Lymphocytes Absolute Auto 0.76 K/mm3 (0.9-3.2); Mean Corpuscular HGB Conc 33.5 g/dl (32-36); Mean Corpuscular Hemoglobin 31.2 pg (26-34); Mean Platelet Volume 11.2 fl (7.4-10.4); Monocytes Absolute Auto 0.3 K/mm3 (0.1-0.6); Monocytes Percent Auto 5.8 % (2.6-8.5); Neutrophils Absolute Auto 4.6 K/mm3 (1.3-6.7); Neutrophils Percent Auto 78.5 % (45.5-73.1); Platelet Count Result 220 k/mm3 (150-375); Red Blood Count 4.43 M/mm3 (4.6-6.20); Red Cell Distribution Width 12.5 % (11.5-14.5); White Blood Count 5.9 K/mm3 (4.5-10.0)
[2021-04-04 09:39] LABS: Anion Gap 8 mmol/L (8-16); Blood Urea Nitrogen 23 mg/dL (9-20); Calcium 9.2 mg/dL (8.4-10.2); Carbon Dioxide 25 mmol/L (22-30); Chloride 104 mmol/L (98-107); Estimated CRCL calculation 61 ml/min; Estimated Glomerular Filt Rate > 60; Glucose 178 mg/dL (65-110); Sodium 137 mmol/L (137-145); Uric Acid 6.8 mg/dL (3.5-8.5)
[2021-04-04] MEDS: predniSONE 20 MG TABLET 60 MG PO (11:03)
[2021-04-04 11:04] VITALS: BP 110/80; PULSE 78; RESP 20; O2SAT 95
== END 2021-04-04 11:04 | disposition home or self-care (01) ==
PROVIDERS: Emergency Provider Emergency Medicine; PCP Internal Medicine
DX: M19.042 Primary osteoarthritis, left hand (principal); M19.041 Primary osteoarthritis, right hand; N40.0 Benign prostatic hyperplasia without lower urinary tract symptoms; E78.5 Hyperlipidemia, unspecified; E03.9 Hypothyroidism, unspecified; E66.3 Overweight; Z68.28 Body mass index [BMI] 28.0-28.9, adult; Z96.651 Presence of right artificial knee joint; Z96.641 Presence of right artificial hip joint; Z98.49 Cataract extraction status, unspecified eye; Z87.891 Personal history of nicotine dependence; Z79.82 Long term (current) use of aspirin
CPT/HCPCS: 36415; 73130; 80048; 84550; 85025; 99284; A9270; J7512

== ENCOUNTER 2021-07-20 13:14 | Outpatient (CLI) | payer MEDICARE, SELFPAY ==
--- NOTE | 2021-07-20 | ECG_ITS ---
Measurements Intervals Siren Rate: 57 P: 4 OH: 194 QRS: -26 QRSD: 110 T: 57 QT: 410 QTc: 401 Interpretive Statements SINUS BRADYCARDIA MINIMAL Q WAVES- HIGH LATERAL LEADS BORDERLINE ECG Electronically Signed On 07-20-2021 14:33:00 THIRD OFFICER by Aris Holley D.O.
== END 2021-07-20 13:15 | disposition home or self-care (01) ==
PROVIDERS: PCP Internal Medicine; Visit Provider Physician Assistant Surgical
DX: M79.642 Pain in left hand (principal); R00.1 Bradycardia, unspecified
CPT/HCPCS: 93005

== ENCOUNTER 2021-07-27 06:50 | Outpatient (CLI) | payer MEDICARE, SELFPAY ==
[2021-07-27 07:16] LABS: Basophils Percent Auto 0.6 % (0.2-1.2); Eosinophils Absolute Auto 0.1 K/mm3 (0-0.3); Eosinophils Percent Auto 2.2 % (0-4.4); Hematocrit 44.9 % (42.0-52.0); Hemoglobin 15.4 g/dL (14.0-18.0); Immature Granulocyte Absolute 0.03 K/mm3 (0.00-0.031); Immature Granulocyte Percent A 0.6 % (0-0.5); Lymphocytes Absolute Auto 1.29 K/mm3 (0.9-3.2); Lymphocytes Percent Auto 25.9 % (18.3-44.2); Mean Corpuscular HGB Conc 34.3 g/dl (32-36); Mean Corpuscular Hemoglobin 32.3 pg (26-34); Mean Corpuscular Volume 94.1 fl (80-100); Mean Platelet Volume 12.2 fl (7.4-10.4); Monocytes Absolute Auto 0.4 K/mm3 (0.1-0.6); Monocytes Percent Auto 8.6 % (2.6-8.5); Neutrophils Absolute Auto 3.1 K/mm3 (1.3-6.7); Neutrophils Percent Auto 62.1 % (45.5-73.1); Platelet Count Result 134 k/mm3 (150-375); Red Blood Count 4.77 M/mm3 (4.6-6.20); Red Cell Distribution Width 12.7 % (11.5-14.5)
[2021-07-27 07:28] LABS: Alanine Aminotransferase 16 U/L (4-50); Albumin Level 4.2 g/dL (3.5-5.1); Alkaline Phosphatase 96 U/L (38-126); Anion Gap 6 mmol/L (8-16); Aspartate Amino Transferase 21 U/L (17-59); Bilirubin,Total 0.6 mg/dL (0.2-1.3); Blood Urea Nitrogen 18 mg/dL (9-20); Calcium 9.2 mg/dL (8.4-10.2); Carbon Dioxide 29 mmol/L (22-30); Chloride 104 mmol/L (98-107); Cholesterol 219 mg/dL (0-200); Estimated Glomerular Filt Rate > 60; Glucose 104 mg/dL (65-110); HDL Direct 40 mg/dL; Potassium 4.7 mmol/L (3.4-5.0); Sodium 139 mmol/L (137-145); Triglycerides 137 mg/dL (<150)
[2021-07-27 07:40] LABS: LDL Cholesterol Direct 148 mg/dL
[2021-07-27 07:59] LABS: Prostate Specific Antigen 1.6 ng/mL (< OR = 4.0)
[2021-07-27 09:13] LABS: Creatinine Urine 74.4 mg/dL
[2021-07-27 09:27] LABS: MALB Creatinine Ratio < 8.1 mg/g (0-30); Microalbumin Urine Random < 6.0 mg/L (0-16.7)
[2021-07-27 09:29] LABS: Vitamin D 25 Hydroxy 58.1 ng/mL
== END 2021-07-27 06:51 | disposition home or self-care (01) ==
PROVIDERS: PCP Internal Medicine; Visit Provider Internal Medicine
DX: E03.9 Hypothyroidism, unspecified (principal); E55.9 Vitamin D deficiency, unspecified; K21.9 Gastro-esophageal reflux disease without esophagitis; M17.12 Unilateral primary osteoarthritis, left knee; N40.0 Benign prostatic hyperplasia without lower urinary tract symptoms; E78.2 Mixed hyperlipidemia; Z12.5 Encounter for screening for malignant neoplasm of prostate
CPT/HCPCS: 36415; 80053; 80061; 82043; 82306; 84153; 84443; 85025; G0103

== ENCOUNTER 2021-11-13 06:57 | Outpatient (CLI) | payer MEDICARE, SELFPAY ==
[2021-11-13 08:18] LABS: Free T4 Free Thyroxine 1.06 ng/mL (0.78-2.19)
== END 2021-11-13 06:58 | disposition home or self-care (01) ==
LOC: ANHLAB 06:59
PROVIDERS: PCP Internal Medicine; Visit Provider Internal Medicine
DX: E03.9 Hypothyroidism, unspecified (principal)
CPT/HCPCS: 36415; 84439; 84443

== ENCOUNTER 2022-03-19 08:47 | Outpatient (CLI) | payer MEDICARE, SELFPAY ==
[2022-03-19 10:13] LABS: Alanine Aminotransferase 19 U/L (6-50); Albumin Level 4.4 g/dL (3.5-5.1); Alkaline Phosphatase 94 U/L (38-126); Anion Gap 12 mmol/L (8-16); Aspartate Amino Transferase 26 U/L (17-59); Bilirubin,Total 1.1 mg/dL (0.2-1.3); Blood Urea Nitrogen 22 mg/dL (9-20); Calcium 8.8 mg/dL (8.4-10.2); Carbon Dioxide 28 mmol/L (22-30); Chloride 101 mmol/L (98-107); Estimated Glomerular Filt Rate > 60; Glucose 108 mg/dL (65-110); Potassium 4.3 mmol/L (3.4-5.0); Sodium 141 mmol/L (137-145)
== END 2022-03-19 08:48 | disposition home or self-care (01) ==
LOC: ANHLAB 08:50
PROVIDERS: PCP Internal Medicine; Visit Provider Nurse Practitioner
DX: E03.9 Hypothyroidism, unspecified (principal); Z79.899 Other long term (current) drug therapy
CPT/HCPCS: 36415; 80053; 84443

== ENCOUNTER 2022-09-15 06:46 | Outpatient (CLI) | payer MEDICARE, SELFPAY ==
[2022-09-15 07:35] LABS: Alanine Aminotransferase 23 U/L (6-50); Albumin Level 4.5 g/dL (3.5-5.1); Alkaline Phosphatase 102 U/L (38-126); Anion Gap 6 mmol/L (8-16); Aspartate Amino Transferase 24 U/L (17-59); Bilirubin,Total 1.1 mg/dL (0.2-1.3); Blood Urea Nitrogen 22 mg/dL (9-20); Calcium 9.1 mg/dL (8.4-10.2); Carbon Dioxide 24 mmol/L (22-30); Chloride 105 mmol/L (98-107); Cholesterol 232 mg/dL (0-200); Estimated Glomerular Filt Rate > 60; Glucose 104 mg/dL (65-110); HDL Direct 40 mg/dL; Potassium 4.1 mmol/L (3.4-5.0); Sodium 135 mmol/L (137-145); Triglycerides 167 mg/dL (<150)
[2022-09-15 07:46] LABS: LDL Cholesterol Direct 137 mg/dL
[2022-09-15 08:15] LABS: Vitamin D 25 Hydroxy 55.1 ng/mL
== END 2022-09-15 06:47 | disposition home or self-care (01) ==
LOC: ANHLAB 06:49
PROVIDERS: PCP Nurse Practitioner; Visit Provider Nurse Practitioner
DX: E78.5 Hyperlipidemia, unspecified (principal); E55.9 Vitamin D deficiency, unspecified; E03.9 Hypothyroidism, unspecified
CPT/HCPCS: 36415; 80053; 80061; 82306; 84443

== ENCOUNTER 2022-09-22 14:18 | Outpatient (CLI) | payer MEDICARE, SELFPAY ==
--- NOTE | ~2022-09-22 | US_ITS ---
EXAMINATION: US art doppler w press LE BI DATE: 09/22/2022 15:08 INDICATION: Peripheral vascular disease. TECHNIQUE: Segmental pressures and plethysmographic and Doppler waveforms of the brachial and lower e xtremity arteries were obtained. COMPARISON: None. FINDINGS: Right and left brachial artery pressures of 142 mm Hg and 132 mm Hg, respectively, are concordant (no rmal difference <= 30 mmHg). The right below-knee pressure index is 1.23. The right ankle-brachial index (BRENNAN) is 1.20 (normal >= 0.9-1.0). The right great toe-brachial index (TBI) is 0.60 (normal >= 0.65). Arterial Doppler wavefor ms are biphasic from common femoral artery to the ankle. The left high-thigh pressure index is 1.14. The left BRENNAN is 1.13. The left TBI is 0.79. Arterial Dopp ler waveforms are biphasic from common femoral artery to the ankle. IMPRESSION: 1. Mildly decreased right TBI and normal right BRENNAN, consistent with right-sided arterial occlusive di sease. Note that BRENNAN may be overestimated if arteries are calcified. 2. No significant left-sided arterial occlusive disease. Reviewed, dictated and finalized at location A. GER DEVELOPMENT IMPRESSION: 1. Mildly decreased right TBI and normal right BRENNAN, consistent with right-sided arterial occlusive disease. Note that BRENNAN may be overestimated if arteries are calcified. 2. No significant left-sided arterial occlusive disease.
== END 2022-09-22 14:19 | disposition home or self-care (01) ==
PROVIDERS: PCP Internal Medicine; Visit Provider Podiatrist Foot & Ankle Surgery
DX: I73.9 Peripheral vascular disease, unspecified (principal)
CPT/HCPCS: 93923

== ENCOUNTER 2023-03-23 06:40 | Outpatient (CLI) | payer MEDICARE, SELFPAY ==
[2023-03-23 08:21] LABS: Alanine Aminotransferase 23 U/L (6-50); Albumin Level 4.3 g/dL (3.5-5.1); Alkaline Phosphatase 94 U/L (38-126); Anion Gap 5 mmol/L (8-16); Aspartate Amino Transferase 28 U/L (17-59); Bilirubin,Total 0.7 mg/dL (0.2-1.3); Blood Urea Nitrogen 26 mg/dL (9-20); Carbon Dioxide 27 mmol/L (22-30); Chloride 106 mmol/L (98-107); Cholesterol 219 mg/dL (0-200); Estimated Glomerular Filt Rate > 60; Glucose 104 mg/dL (65-110); HDL Direct 38 mg/dL; Potassium 4.7 mmol/L (3.4-5.0); Sodium 138 mmol/L (137-145); Triglycerides 135 mg/dL (<150)
[2023-03-23 08:32] LABS: LDL Cholesterol Direct 142 mg/dL
[2023-03-23 08:47] LABS: Free T4 Free Thyroxine 1.14 ng/mL (0.78-2.19); Vitamin D 25 Hydroxy 71.5 ng/mL
== END 2023-03-23 06:41 | disposition home or self-care (01) ==
LOC: ANHLAB 06:42
PROVIDERS: PCP Family Medicine; Visit Provider Nurse Practitioner
DX: E55.9 Vitamin D deficiency, unspecified (principal); E03.9 Hypothyroidism, unspecified; E78.5 Hyperlipidemia, unspecified
CPT/HCPCS: 36415; 80053; 80061; 82306; 84439; 84443

== ENCOUNTER 2023-09-30 07:02 | Outpatient (CLI) | payer MEDICARE, SELFPAY ==
[2023-09-30 08:26] LABS: Alanine Aminotransferase 26 U/L (6-50); Alkaline Phosphatase 93 U/L (38-126); Anion Gap 2 mmol/L (8-16); Aspartate Amino Transferase 26 U/L (17-59); Bilirubin,Total 1.4 mg/dL (0.2-1.3); Blood Urea Nitrogen 26 mg/dL (9-20); Carbon Dioxide 28 mmol/L (22-30); Chloride 107 mmol/L (98-107); Cholesterol 134 mg/dL (0-200); Estimated Glomerular Filt Rate > 60; Glucose 101 mg/dL (65-110); HDL Direct 40 mg/dL; Potassium 4.1 mmol/L (3.4-5.0); Sodium 137 mmol/L (137-145); Triglycerides 110 mg/dL (<150)
[2023-09-30 08:36] LABS: LDL Cholesterol Direct 85 mg/dL
[2023-09-30 08:51] LABS: Free T4 Free Thyroxine 1.03 ng/mL (0.78-2.19)
== END 2023-09-30 07:03 | disposition home or self-care (01) ==
PROVIDERS: PCP Nurse Practitioner; Visit Provider Nurse Practitioner
DX: E78.5 Hyperlipidemia, unspecified (principal); E03.9 Hypothyroidism, unspecified
CPT/HCPCS: 36415; 80053; 80061; 84439; 84443

== ENCOUNTER 2024-04-07 06:56 | Outpatient (CLI) | payer MEDICARE, SELFPAY ==
[2024-04-07 07:25] LABS: Hematocrit 45.5 % (42.0-52.0); Hemoglobin 15.6 g/dL (14.0-18.0); Mean Corpuscular HGB Conc 34.3 g/dl (32-36); Mean Corpuscular Hemoglobin 32.7 pg (26-34); Mean Corpuscular Volume 95.4 fl (80-100); Platelet Count Result 119 k/mm3 (150-375); Red Blood Count 4.77 M/mm3 (4.6-6.20); Red Cell Distribution Width 12.5 % (11.5-14.5); White Blood Count 4.6 K/mm3 (4.5-10.0)
[2024-04-07 07:40] LABS: Alanine Aminotransferase 22 U/L (6-50); Albumin Level 4.1 g/dL (3.5-5.1); Alkaline Phosphatase 95 U/L (38-126); Anion Gap 5 mmol/L (4-12); Aspartate Amino Transferase 25 U/L (17-59); Bilirubin,Total 0.9 mg/dL (0.2-1.3); Blood Urea Nitrogen 24 mg/dL (9-20); Calcium 8.8 mg/dL (8.4-10.2); Carbon Dioxide 29 mmol/L (22-30); Chloride 103 mmol/L (98-107); Cholesterol 151 mg/dL (0-200); Estimated Glomerular Filt Rate > 60; Glucose 103 mg/dL (65-110); HDL Direct 37 mg/dL; Potassium 4.5 mmol/L (3.4-5.0); Sodium 137 mmol/L (137-145); Triglycerides 90 mg/dL (<150)
[2024-04-07 08:03] LABS: LDL Cholesterol Direct 93 mg/dL
== END 2024-04-07 06:57 | disposition home or self-care (01) ==
LOC: ANHLAB 06:59
PROVIDERS: PCP Nurse Practitioner; Visit Provider Nurse Practitioner
DX: E03.9 Hypothyroidism, unspecified (principal); E78.5 Hyperlipidemia, unspecified
CPT/HCPCS: 36415; 80053; 80061; 84443; 85027

== ENCOUNTER 2024-09-24 06:52 | Outpatient (CLI) | payer MEDICARE, SELFPAY ==
--- OUTSIDE RECORDS SUMMARY | 2024-09-24 06:56 | XMS_ITS | Data Portability ---
Author Organization [place] [facility], Main Office Address [address] [place] [address] Care Team Providers Care Package Center Supervisor Name Role Phone YONATANWALKER Primary Care Provider YONATANWALKER Referring Provider [phone] Assessment Encounter Date Assessment Date Assessment LastModified by Organization Details LastModified Time 05/02/2023 05/02/2023 HPI: Patient returns. He is here for a 5 year year routine x-ray surveillance of his right hip. We did his hip replacement in 2011. He is now 11 years out. Having no problems with the right hip. He aggravated his left hip about a month ago. He is using a shovel and when he went to step down on the shelf with the left leg he thinks that he hit a root and he has sudden jolt and it aggravated his left hip. It is painful for about 2 or 3 weeks. However week ago he went golfing and by the 15 to home he states that the pain was completely gone at this point he is asymptomatic. Physical exam: 83-year-old male alert pleasant. He is walking well without limp or assistance. He has no pain with range of motion the right hip. He has some mild decreased range of motion left hip. He flexes to 90 externally rotates 20 internally rotates that then was some mild discomfort. Impression: Patient is now 11 years out from right total arthroplasty. X-rays look excellent. 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 Fortunately his symptoms have completely dissipated on her own at this point is asymptomatic. At this point we can see him back in 5 years for routine x-ray surveillance of right hip. If she starts to have any symptoms in the left he call otherwise see him as needed. [email or web address] Not available 05/02/2023 16:56:39 Plan of Treatment Reminders Order Date Submit Date Provider Last Modified By Organization Details Last Modified Time Details Appointments None recorded. Lab None recorded. Referral None recorded. Procedures None recorded. Surgeries None recorded. Imaging XR, hip + pelvis, unilateral 2022 023 [email or web address] [facility] [place], [address], [address], 08:14:26 Medication Orders None recorded. Patient TargetsNo targets recorded. Patient InstructionsNo instructions recorded. Reason for Referral None Reported. Results Created Date Observation Date Name Description Value Unit Range Abnormal Flag Note LastModifiedBy Organization Detail LastModifiedTime 07/20/19 22 07/20/2021 rhyth m strip , EKG* No observ ation record ed. [id number] [facility] (Medical Records) [address], [place], [address], 09/15/2022 01:03:01 09/11/19 22 09/11/2021 XR, hand, 3 or more view No observ ation record ed. [id number] [facility] [place] [address], [place], [address], 09/15/2022 01:03:01 11/07/19 22 11/06/2021 XR, hand, 3 or more view No observ ation record ed. [id number] [facility] [place] [address], [place], [address], 09/15/2022 01:03:01 02/10/20 22 XR, hand, 3 or more view No observ ation record ed. [id number] [facility] [place] [address], [place], [address], 09/15/2022 01:03:01 05/02/20 23 XR, hip + pelvi s, unila teral No observ ation record ed. [email or web address] [facility] [place] [address], [place], [address], 05/02/2023 16:55:29 Result Notes None recorded. 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 3 00:55:00 Osteoarthr itis 624562882 Active Not Available [facility] 3 00:55:00 Pain in right hip joint 0118137631158 02 Active 2022 VIRGIL Oneil, [place] [facility] [employer] [facility] 3 16:16:11 Pain of left hip joint 6670780044084 00 Active 2022 VIRGIL Oneil null, [place] [facility] [employer] [facility] 3 16:16:41 Problem Notes None recorded. Procedures Surgical History Date Name Laterality Status Provider Name and Address Organization Details Recorded Time Cataract Surgery completed Not Available [facility] 09/15/2022 00:49:03 Hip surgery completed Not Available [facility] 09/15/2022 00:49:03 Hernia Surgery completed Not Available [facility] 09/15/2022 00:49:03 Knee Replacement completed Not Available [facility] 09/15/2022 00:49:03 Colon Resection completed Not Available [facility] 09/15/2022 00:49:03 Rotator cuff surgery completed Not Available [facility] 09/15/2022 00:49:03 Carpal tunnel completed VIRGIL Oneil [place] [facility] [employer] [facility] 05/02/2023 16:15:14 Imaging Results Imaging Date Name Status LastModified by Organiz ation Details LastModified Time 11/06/2021 XR, hand, 3 or more view completed [id number] [facility] [place] [address], [place], [address], 09/15/2022 01:03:01 07/20/2021 rhythm strip, EKG* completed [id number] [facility] (Medical Records) [address], [place], [address], 09/15/2022 01:03:01 09/11/2021 XR, hand, 3 or more view completed [id number] [facility] [place] [address], [place], [address], 09/15/2022 01:03:01 02/09/2022 XR, hand, 3 or more view completed [id number] [facility] [place] [address], [place], [address], 09/15/2022 01:03:01 05/02/2023 XR, hip + pelvis, unilateral completed [email or web address] [facility] [place] [address], [place], [address], 05/02/2023 16:55:29 Procedure Notes None recorded. Medical Equipment None Reported. Allergies No known drug allergies Medications Name Sig Start Date Stop Date Status Note LastModified by Organization Details LastModified Time amoxicillin 500 mg capsule active Not Available Not Available Not Available terazosin 5 mg capsule 05/30 completed Not Available Not Available Not Available flaxseed oil 1300 mg 2020 active Not Available Not Available Not Avai lable nitrofurant oin macrocrysta l 50 mg capsule 05/30 completed Not Available Not Available Not Available atorvastati n 20 mg tablet active Not Available Not Available Not Available hydrocodone 5 mg-acetamin ophen 325 mg tablet 11/06 completed Not Available Not Available Not Available meloxicam 15 mg tablet active Not Available Not Available Not Available prednisone 20 mg tablet 11/06 completed Not Available Not Available Not Available fondaparinu x 2.5 mg/0.5 mL subcutaneou s solution syringe 05/30 completed Not Available Not Available Not Available omeprazole 40 mg capsule,del ayed release active Not Available Not Available Not Available tramadol 50 mg tablet 11/06 completed Not Available Not Available Not Available Celebrex 200 mg capsule Take 1 capsule PO BID TIMES 4WKS 08/19 completed Not Available Not Available Not Available levothyroxi ne 100 mcg tablet 11/06 completed Not Available Not Available Not Available tamsulosin 0.4 mg capsule active Not Available Not Available Not Available Kenalog 10 mg/mL suspension for injection In office injection administe red by the provider 11/06 completed NDC: 0003- 0494- 20 Not Available Not Available Not Available hydrocodone 7.5 mg-acetamin ophen 325 mg tablet 05/30 completed Not Available Not Available Not Available levothyroxi ne 125 mcg tablet active Not Available Not Available Not Available Percocet 5 mg-325 mg tablet TAKE 1 TABLET PO Q 4HR PRN PAIN 08/19 completed Not Available Not Available Not Available finasteride 5 mg tablet active Not Available Not Available Not Available levothyroxi ne 112 mcg tablet active Not Available Not Available Not Available oxycodone 5 mg tablet 06/29 completed Not Available Not Available Not Available enoxaparin 30 mg/0.3 mL subcutaneou s syringe 08/19 completed Not Available Not Available Not Available aspirin 81 mg 2020 active Not Available Not Available Not Avai lable Glucosamine 2020 active Not Available Not Available Not Avai lable lidocaine (PF) 10 mg/mL (1 %) injection solution In office injection administe red by the provider 11/06 completed NDC: 0409- 4276- 17 Not Available Not Available Not Available Besivance 0.6 % eye drops,suspe nsion 06/29 completed Not Available Not Available Not Available Lotemax 0.5 % eye gel drops 06/29 completed Not Available Not Available Not Available Prolensa 0.07 % eye drops 06/29 completed Not Available Not Available Not Available Shingrix (PF) 50 mcg/0.5 mL intramuscul ar suspension, kit 10/24 completed Not Available Not Available Not Available Fluzone High-Dose 2019-20 (PF) 180 mcg/0.5 mL intramuscul ar syringe 09/15 completed Not Available Not Available Not Available Fluad Quad 7586-7299(6 5yr up)(PF) 60 mcg (15 mcg x 4)/0.5mL IM syringe 09/15 completed Not Available Not Available Not Available Vitals Date Recorded Body mass index (BMI) Body height Pain severity - 0-10 verbal numeric rating [Score] - Reported Body weight Provider Name and Address Organization Details Last Updated DateTime 08/14/2021 30.7 kg/m2 167.64 cm 1 68951.55 g Not Available [facility] 09/15/2022 00:50:45 Date Recorded Body mass index (BMI) Body height Pain severity - 0-10 verbal numeric rating [Score] - Reported Body weight Provider Name and Address Organization Details Last Updated DateTime 09/11/2021 29.1 kg/m2 167.64 cm 1 09790.63 g Not Available [facility] 09/15/2022 00:50:45 Date Recorded Body mass index (BMI) Body height Pain severity - 0-10 verbal numeric rating [Score] - Reported Body weight Provider Name and Address Organization Details Last Updated DateTime 11/06/2021 29.7 kg/m2 167.64 cm 2 48301 g Not Available [facility] 09/15/2022 00:50:45 Date Recorded Body mass index (BMI) Body height Pain severity - 0-10 verbal numeric rating [Score] - Reported Body weight Provider Name and Address Organization Details Last Updated DateTime 02/09/2022 30.3 kg/m2 167.64 cm 1 42107.37 g Not Available [facility] 09/15/2022 00:50:45 Date Recorded Body height Body mass index (BMI) Body weight Provider Name and Address Organization Details Last Updated DateTime 05/02/2023 170.82 cm 29.5 kg/m2 48616.55 g VIRGIL Oneil [facility] 05/02/2023 16:38:59 Social History Question Answer Notes LastModified by Organizat ion Details LastModified Time Tobacco Smoking Status Former Smoker Not Available [facility] 09/15/2022 00:46:56 What Is Your Level Of Alcohol Consumption? Occasional [id number] Information not available 09/15/2022 How Many Years Have You Consumed Alcohol? 40 [id number] Information not available 09/15/2022 What Was The Date Of Your Most Recent Tobacco Screening? 11/06/2021 [id number] Information not available 09/15/2022 Sex: Unknown Functional Status None recorded. Mental Status None recorded. Family History Relationship Description Onset Age of this Age Resolved Age Notes LastModified by Organization Details LastModified Time Sister Family history of malignant neoplasm [id number] Not available 09/15/2022 00:49:05 Mother Essential hypertension [id number] Not available 09/15/2022 00:49:05 Father Parkinson's disease [id number] Not available 09/15/2022 00:49:05 Sister Family history of stroke [email or web address] Not available 2022 16:14:11 Sister Diabetes mellitus [email or web address] Not available 2022 16:14:28 Medical History Condition Response ARTHRITIS Y USE OF NSAIDS Y URINARY/BLADDER/KIDNEY PROBLEMS Y Past Encounters Encounter ID Performer Location Encounter Start Date Encounter Closed Date Diagnosis/Indication Diagnosis SNOMED-CT Code Diagnosis ICD10 Code Diagnosis Note [id number] [facility] [place] [address] [place] [address] 09/15/2020 00:00:00 09/15/2020 14:57:09 [id number] [facility] [place] [address] [place] [address] 10/24/2020 00:00:00 10/24/2020 09:29:07 [id number] [facility] [place] [address] [place] [address] 04/08/2021 00:00:00 04/08/2021 16:42:25 [id number] [facility] [place] [address] [place] [address] 06/09/2021 00:00:00 06/09/2021 11:28:26 [id number] [facility] [place] [address] [place] [address] 07/24/2021 00:00:00 07/24/2021 11:27:46 [id number] [facility] [place] [address] [place] [address] 08/14/2021 00:00:00 08/14/2021 09:47:11 [id number] [facility] [place] [address] [place] [address] 09/11/2021 00:00:00 09/11/2021 10:22:04 [id number] [facility] [place] [address] [place] [address] 11/06/2021 00:00:00 11/06/2021 09:52:59 [id number] [facility] [place] [address] [place] [address] 02/09/2022 00:00:00 02/09/2022 16:59:38 [id number] SKYLER Wood [facility] [place] [address] [place] [address] 05/02/2023 15:38:23 05/02/2023 17:16:46 History of total replacement of right hip joint 9239101704 54822 Z96.641 Pain of le ft hip joint 8160559359 66220 M25.552 Health Concerns Section Related Observation LastModified by Organization Detai ls LastModified Time None Recorded Concern Status LastModified by Organization Details LastModified Time None Recorded Advance Directives Directive None Recorded Payers Encounter Date Sequence Insurance Name Policy Number Policy Wilcox Covered Member ID Wilcox Member ID Guarantor Name 05/02/2023 1 [employer] (MEDICARE REPLACEMENT PPO) [id number] Chuy Smart [id number] Chuy Smart
--- OUTSIDE RECORDS SUMMARY | 2024-09-24 06:56 | XMS_ITS | Continuity of Care Document ---
Author Organization [facility] Address [address] [place] [address] [address] [place] [address] Phone Care Team Providers Care Archives Director Name Role Phone Latif OD, Napoleon Unavailable Unavailable Advance Directives Directive Yes / No Effective Date File Name No Information Encounters Encounter Description Practice Location Reason(s) For Visit Diagnoses Date Provider Providers Copied on Encounter [facility], [address] [place] [address] [address], [place], [place], [id number], [place] tel:[phone] [facility] (formerly [facility])[3] No Information Mar-2 3-200 6 Latif OD Napoleon. [address] , [address], [place], [address], [place]. tel:[phone] Family History Family Member Type Diagnosis Age At Onset No Information Payers Payer name Insurance type Covered republican ID Authoriza tion(s) [place] [id number] Social History Type Description Quantity Date Captured Comments Sex Male Smoking Status No Information Chief Complaint And Reason For Visit No Information Reason For Referral Reason For Referral No Information History Of Present Illness Encounter Date Complaint History Of Prese nt Illness No Information Functional Status Date Functional Assessmen t No Information Instructions Date Instruction Additional Infor mation No Information Assessments Type Assessment Date No Information Patient Care Teams Name Effective Dates (start - stop) Status Members No Information
[2024-09-24 07:41] LABS: Alanine Aminotransferase 25 U/L (6-50); Albumin Level 4.5 g/dL (3.5-5.1); Alkaline Phosphatase 104 U/L (38-126); Anion Gap 7 mmol/L (4-12); Aspartate Amino Transferase 26 U/L (17-59); Bilirubin,Total 1.3 mg/dL (0.2-1.3); Blood Urea Nitrogen 26 mg/dL (9-20); Calcium 9.3 mg/dL (8.4-10.2); Carbon Dioxide 26 mmol/L (22-30); Chloride 108 mmol/L (98-107); Cholesterol 139 mg/dL (0-200); Estimated Glomerular Filt Rate > 60; Glucose 105 mg/dL (65-110); HDL Direct 39 mg/dL; Potassium 4.5 mmol/L (3.4-5.0); Sodium 141 mmol/L (137-145); Triglycerides 116 mg/dL (<150)
[2024-09-24 07:52] LABS: LDL Cholesterol Direct 73 mg/dL
== END 2024-09-24 06:53 | disposition home or self-care (01) ==
LOC: ANHLAB 06:54
PROVIDERS: PCP Internal Medicine; Visit Provider Nurse Practitioner
DX: E78.5 Hyperlipidemia, unspecified (principal); E03.9 Hypothyroidism, unspecified; E55.9 Vitamin D deficiency, unspecified
CPT/HCPCS: 36415; 80053; 80061; 82306; 84443

== ENCOUNTER 2025-03-28 06:59 | Outpatient (CLI) | payer MEDICARE, SELFPAY ==
[2025-03-28 09:26] LABS: Alanine Aminotransferase 22 U/L (6-50); Albumin Level 4.1 g/dL (3.5-5.1); Alkaline Phosphatase 104 U/L (38-126); Anion Gap 7 mmol/L (4-12); Aspartate Amino Transferase 30 U/L (17-59); Bilirubin,Total 1.3 mg/dL (0.2-1.3); Blood Urea Nitrogen 22 mg/dL (9-20); Calcium 9.1 mg/dL (8.4-10.2); Carbon Dioxide 25 mmol/L (22-30); Chloride 107 mmol/L (98-107); Cholesterol 167 mg/dL (0-200); Estimated Glomerular Filt Rate > 60; Glucose 99 mg/dL (65-110); HDL Direct 37 mg/dL; Potassium 4.4 mmol/L (3.4-5.0); Sodium 139 mmol/L (137-145); Total Protein 6.9 g/dL (6.3-8.2); Triglycerides 157 mg/dL (<150)
== END 2025-03-28 07:00 | disposition home or self-care (01) ==
LOC: ANHLAB 07:00
PROVIDERS: PCP Internal Medicine; Visit Provider Nurse Practitioner
DX: E78.5 Hyperlipidemia, unspecified (principal)
CPT/HCPCS: 36415; 80053; 80061